=== PATIENT | female | born 1960 | race Caucasian/White ===

== ENCOUNTER 2024-05-27 07:38 | Emergency (ER) | payer OTHER ==
[~2024-05-27] VITALS: Ht 157.4 cm; Wt 52.6 kg
[2024-05-27 07:46] VITALS: BP 111/79
[2024-05-27] MEDS ORDERED: Ketorolac Tromethamine 30 MG/ML VIAL IM ONE (08:00)
== END 2024-05-27 09:59 | disposition home or self-care (01) ==
LOC: ED 07:38
DX: S63.502A Unspecified sprain of left wrist, initial encounter (principal); M54.2 Cervicalgia; M25.511 Pain in right shoulder; M25.512 Pain in left shoulder; W18.39XA Other fall on same level, initial encounter; Y93.K1 Activity, walking an animal; Y92.89 Other specified places as the place of occurrence of the external cause; Y99.8 Other external cause status